=== PATIENT | female | born 1935 | race Two or more races ===

== ENCOUNTER 2017-05-08 17:36 | Emergency (ER) | payer OTHER, MEDICAID ==
[~2017-05-08] VITALS: Ht 162.6 cm; Wt 68.0 kg
--- NOTE | 2017-05-08 17:36 | NUR ---
SEEN BY MD CARDENAS-- CODE STROKE ACTIVATED. PATIENT WAS TAKEN STRAIGHT TO CT IV LINE ON RAC NOTED INTACT
--- NOTE | 2017-05-08 17:36 | NUR ---
AAOX3, BIBRA 37 FROM HOME C/O SLURRED SPEECH LEFT FACIAL DROOPING AND LEFT SIDED WEAKNESS, LKW 1715 PER CIRCULAR STUFFER. PATIENT WAS DISCHARGED FROM [place] D/T TIA X 2 DAYS AGO. RR IS EVEN AND UNLABORED WITH NAD NOTED. SKIN IS WARM AND DRY. PATIENT WAS TRANSPORTED TO CT SCAN VIA CIRCULAR STUFFER [facility] CARDENAS AT BS. ER MD CALLED CODE STROKE.
--- NOTE | 2017-05-08 17:39 | NUR ---
CALLED [facility], SPOKE WITH RUTHIE EXPECTING A CALL BACK FROM DR LOPEZ.
[2017-05-08] MEDS ORDERED: IOHEXOL-350 100 ML VIAL IV ONE (17:43)
[2017-05-08] MEDS ORDERED: IV NS 0.9% 250 ML IV ONE (17:43)
--- NOTE | 2017-05-08 18:09 | NUR ---
CALLED [facility], DR THOMAS ON THE PHONE WITH DR CARDENAS.
[2017-05-08 18:14] LABS: BASOPHILS # (AUTO) 0.2 /CMM (0.0-0.2); BASOPHILS % (AUTO) 2.9 % (0.0-2.0); EOSINOPHILS # (AUTO) 0.1 /CMM (0.0-0.7); EOSINOPHILS % (AUTO) 1.5 % (0.0-6.0); HEMATOCRIT 30 % (33-45); HEMOGLOBIN 10.7 g/dL (11.5-14.8); LYMPHOCYTES # (AUTO) 1.9 /CMM (0.8-4.8); LYMPHOCYTES % (AUTO) 26.5 % (20.0-44.0); MEAN CORPUSCULAR HEMOGLOBIN 33 PG (26.0-33.0); MEAN CORPUSCULAR HGB CONC 35 g/dl (31.0-36.0); MEAN CORPUSCULAR VOLUME 93 fL (82-100); MONOCYTES # (AUTO) 0.3 /CMM (0.1-1.30); MONOCYTES % (AUTO) 4.8 % (2.0-12.0); NEUTROPHILS # (AUTO) 4.5 /CMM (1.8-8.9); NEUTROPHILS % (AUTO) 64.3 % (43.0-81.0); PLATELET COUNT (AUTO) 273 /CMM (150-450); RDW COEFFICIENT OF VARIATION 12.4 (11.5-15.0); RED BLOOD CELL COUNT(AUTO) 3.27 MIL/uL (4.0-5.2)
[2017-05-08 18:25] LABS: CARBON DIOXIDE 23 mmol/L (21-32); CHLORIDE 105 mmol/L (98-107); GLUCOSE 128 mg/dL (74-106); POTASSIUM 3.7 mmol/L (3.5-5.1); SODIUM SERUM 137 mmol/L (136-145); UREA NITROGEN, BLOOD 19 mg/dL (7-18)
[2017-05-08 18:28] LABS: INR 0.93 (0.87-1.13)
[2017-05-08 18:30] LABS: ALANINE AMINOTRANSFERASE 15 U/L (12-78); ALBUMIN 3.3 g/dL (3.4-5.0); ALKALINE PHOSPHATASE 58 U/L (46-116); ASPARTATE AMINOTRANSFERASE 16 U/L (15-37); BILIRUBIN,DIRECT 0.1 mg/dL (0.0-0.2); BILIRUBIN,TOTAL 0.6 mg/dL (0.2-1.0); TOTAL PROTEIN, SERUM 6.4 g/dL (6.4-8.2)
[2017-05-08 18:33] LABS: TROPONIN I < 0.017 ng/mL (0.00-0.056)
--- NOTE | 2017-05-08 18:58 | NUR ---
[facility], EXPECTING A CALL BACK FROM A ROXANA
[2017-05-08 19:01] LABS: CHOLESTEROL 178 mg/dL (<200); HDL CHOLESTEROL 36 mg/dL (40-60); LDL 112 mg/dL (0-99); TRIGLYCERIDES 207 mg/dL (30-150)
[2017-05-08 19:57] VITALS: BP 141/68
--- NOTE | 2017-05-08 20:07 | NUR ---
REPORT GIVEN TO [place], [facility] TRANSPORT. PATIENT TRANSPORTED TO [facility] VIA AMBULANCE. PATIENT REMAINS IN STABLE CONDITION AT THIS TIME.
--- NOTE | 2017-05-08 20:10 | NUR ---
CORRECTION: DISPOSITION SHOULD HAVE BEEN TRANSFERRED TO ANOTHER ACUTE HOSPITAL.
== END 2017-05-08 20:10 | disposition home or self-care (01) ==
LOC: ER 17:38
DX: I63.8 Other cerebral infarction (principal)
CPT/HCPCS: 36415; 70450; 70496; 70498; 71045; 80048; 80061; 80076; 82962; 84484; 85025; 85730; 93005; 99291; A4606; J7050; Q9967; Z7610